=== PATIENT | female | born 1955 | race Caucasian/White ===

== ENCOUNTER 2023-06-29 08:30 | Day surgery (SDC) | payer OTHER ==
[2023-06-22 14:35] VITALS: BP 176/81; PULSE 65; RESP 16
[~2023-06-29] VITALS: Ht 160 cm; Wt 80.7 kg
[2023-06-29] VITALS (11 sets, daily range): BP systolic 112–163; BP diastolic 55–95; PULSE 57–78; RESP 15–17
[~2023-06-29 08:30] MED LIST: INDOMETHACIN 100 MG SUPP.RECT RC ONE; IOHEXOL-350 50ML VIAL IV ONE
[2023-06-29] MEDS ORDERED: PROPOFOL 10 MG/ML 20ML VIAL IV ONE (10:35)
[2023-06-29] MEDS ORDERED: FENTANYL CITRATE PF 50 MCG/1 ML 2ML VIAL ONE (10:35)
[2023-06-29] MEDS ORDERED: LIDOCAINE HCL 400MG/20ML VIAL ONE (10:36)
[2023-06-29] MEDS ORDERED: SUCCINYLCHOLINE CHLORIDE 20 MG/ML 10 ML VIAL ONE (10:36)
[2023-06-29] MEDS ORDERED: ONDANSETRON 4MG INJ ONE ×3 (10:36→11:46)
[2023-06-29] MEDS ORDERED: METOCLOPRAMIDE 10 MG/2 ML VIAL ONE (12:16)
== END 2023-06-29 11:05 | disposition home or self-care (01) ==
LOC: DAH 08:30 → ENDO 08:30
PROVIDERS: ATTEND Internal Medicine Gastroenterology
DX: K80.50 Calculus of bile duct without cholangitis or cholecystitis without obstruction (principal); K83.8 Other specified diseases of biliary tract; R93.2 Abnormal findings on diagnostic imaging of liver and biliary tract; Z88.6 Allergy status to analgesic agent; Z82.49 Family history of ischemic heart disease and other diseases of the circulatory system; Z82.3 Family history of stroke; Z82.5 Family history of asthma and other chronic lower respiratory diseases; Z87.891 Personal history of nicotine dependence; Z90.49 Acquired absence of other specified parts of digestive tract
CPT/HCPCS: 43262; 74328; 43264; 43237; J3010; J3490; J0330; J2704; J2405 ×3; J2765; Q9967; A4620; A4215 ×2; A4223; A4657; A7002; A4222; A4221; A4663; A4216; J7030; A4606; C1769; C1773; 74330